=== PATIENT | female | born 1995 | race Caucasian/White ===

== ENCOUNTER 2017-11-17 11:17 | Emergency (ER) | payer OTHER ==
[2017-11-17] MEDS: DIPHENHYDRAMINE 25 MG CAP PO (14:10)
[2017-11-17] MEDS: predniSONE 20 MG TAB PO (14:10)
[2017-11-17] MEDS: FAMOTIDINE 20 MG TAB PO (14:10)
== END 2017-11-17 14:48 | disposition home or self-care (01) ==
LOC: FTE 11:17
DX: R60.0 Localized edema (principal)
CPT/HCPCS: 99283; J7512

== ENCOUNTER 2019-03-13 13:06 | Emergency (ER) | payer OTHER | END 2019-03-13 17:13 | disposition home or self-care (01) | LOC: FTE 13:06 | DX: K62.5 Hemorrhage of anus and rectum (principal); K58.9 Irritable bowel syndrome, unspecified | CPT/HCPCS: 99282; Z7502 ==